=== PATIENT | female | born 1970 | race Caucasian/White ===

== ENCOUNTER 2016-07-01 11:54 | Emergency (ER) | payer MEDICAID ==
[~2016-07-01] VITALS: Ht 162.6 cm; Wt 86.2 kg
[2016-07-01 12:17] VITALS: BP 162/98; PULSE 81; RESP 18; TEMP 97.3; O2SAT 99
[2016-07-01 13:32] LABS: BASOPHILS % (AUTO) 0.3 % (0.0-2.0); EOSINOPHILS # (AUTO) 0.1 K/uL (0.0-0.4); EOSINOPHILS % (AUTO) 0.8 % (0.0-4.0); HEMATOCRIT 43.2 % (36-48); HEMOGLOBIN 14.2 g/dL (12.0-16.0); LYMPHOCYTES # (AUTO) 4.4 K/uL (1.0-5.5); LYMPHOCYTES % (AUTO) 42.4 % (20.5-51.5); MEAN CORPUSCULAR HEMOGLOBIN 28 pg (27-31); MEAN CORPUSCULAR HGB CONC 33 % (32-36); MEAN CORPUSCULAR VOLUME 84 fL (79.0-98.0); MONOCYTES # (AUTO) 0.6 K/uL (0.0-1.0); MONOCYTES % (AUTO) 5.5 % (1.7-9.3); NEUTROPHILS # (AUTO) 5.3 K/uL (1.8-7.7); PLATELET COUNT (AUTO) 232 K/uL (130-430); RED BLOOD CELL COUNT(AUTO) 5.12 MIL/uL (4.2-6.2); RED CELL DISTRIBUTION WIDTH 12.3 % (9.0-15.0); WHITE BLOOD COUNT (AUTO) 10.4 K/uL (4.8-10.8)
[2016-07-01 13:40] LABS: CALCIUM 9.5 mg/dL (8.4-11.0); CREATININE 0.64 mg/dL (0.55-1.30)
[2016-07-01 13:45] LABS: ALBUMIN 4.2 g/dL (3.4-4.8); PROTHROMBIN TIME 10.5 SECS (9.5-12.5); TOTAL BILIRUBIN 0.3 mg/dL (0.0-1.0); TOTAL PROTEIN, SERUM 8.4 g/dL (6.4-8.3)
--- NOTE | 2016-07-01 13:55 | NUR ---
PT TOLD ADMITTING CLERKS THAT SHE WANTS TO LEAVE WITHOUT BEING SEEN. MYSELF AND DR STRATTON SPOKE WITH PT AND ENCOURAGED HER TO STAY, DR STRATTON ORDERED TESTS. WILL MONITOR PT.
--- NOTE | 2016-07-01 13:56 | NUR ---
Patient to ER bed 02 to gown for evaluation. Side rails up.
--- NOTE | 2016-07-01 14:00 | NUR ---
ER at bedside examining patient.
[2016-07-01] MEDS ORDERED: METOCLOPRAMIDE HCL 10 MG/2 ML VIAL IVP ONE (14:15)
[2016-07-01] MEDS ORDERED: MECLIZINE HCL 25 MG TABLET (ANITVERT) PO ONE (14:15)
--- NOTE | 2016-07-01 14:54 | NUR ---
PT STATES SHE FEELS A LITTLE BETTER SINCE GETTING MEDICATED.
--- NOTE | 2016-07-01 15:41 | NUR ---
Patient given written and verbal discharge instructions and verbalizes understanding. ER MD discussed with patient the results and treatment provided. Patient in stable condition. ID arm band removed. Rx of Meclizine given. Patient educated on pain management and to follow up with PMD. Pain Scale 0/10. Opportunity for questions provided and answered.
[2016-07-01 15:50] VITALS: BP 121/81; PULSE 81; RESP 14; TEMP 97; O2SAT 99
== END 2016-07-01 20:15 | disposition home or self-care (01) ==
LOC: SED 11:54
DX: R42 Dizziness and giddiness (principal); R11.0 Nausea; H93.19 Tinnitus, unspecified ear; I10 Essential (primary) hypertension
CPT/HCPCS: 36415; 70450; 71010; 80053; 81025; 82550; 83880; 84484; 85025; 85610; 85730; 93005; 96374; 99285; J2765; J8597

== ENCOUNTER 2023-08-26 16:59 | Emergency (ER) | payer MEDICAID ==
[~2023-08-26] VITALS: Ht 162.6 cm; Wt 83.5 kg
[2023-08-26 17:19] VITALS: BP_SYST 192; PULSE 85; RESP 18; TEMP 98.3; O2SAT 98
[2023-08-26] MEDS: KETOROLAC TROMETHAMINE 30 MG VIAL IM ONE (18:03)
[2023-08-26] MEDS: ACETAMINOPHEN 500 MG TABLET PO ONE (18:04)
[2023-08-26 20:22] VITALS: BP_SYST 192; PULSE 85; RESP 18; TEMP 98.3; O2SAT 98
== END 2023-08-26 20:22 | disposition home or self-care (01) ==
LOC: SED 16:59
DX: S81.831A Puncture wound without foreign body, right lower leg, initial encounter (principal); M79.671 Pain in right foot; G62.9 Polyneuropathy, unspecified; E11.9 Type 2 diabetes mellitus without complications; I10 Essential (primary) hypertension; W33.01XA Accidental discharge of shotgun, initial encounter; Y93.89 Activity, other specified; Y92.89 Other specified places as the place of occurrence of the external cause; Y99.8 Other external cause status
CPT/HCPCS: 99285; 93971; 73590; 73630; 96372; 82948; J1885